=== PATIENT | male | born 1990 | race African-American/Black ===

== ENCOUNTER 2016-05-22 18:37 | Emergency (ER) | payer OTHER ==
[~2016-05-22] VITALS: Ht 172.7 cm; Wt 108.0 kg
[2016-05-22 18:48] VITALS: TEMP 37.4; Ht 172.7 cm; Wt 108.0 kg
[2016-05-22] MEDS ORDERED: ACETAMINOPHEN 500 MG TAB PO STA (19:26)
--- NOTE | 2016-05-22 20:03 | DIAGNOSTIC IMAGING REPORT ---
HEAD CT NONCONTRAST CT DOSE: 601.98 mGy.cm HISTORY: Closed head injury. TECHNIQUE: Multiaxial CT images of the head were performed without the use of intravenous contrast. Automated exposure control was utilized for this study. Comparison: None. Findings: The paranasal sinuses and mastoid air cells are clear. The calvarium and skull base are intact. The ventricles and sulci are within normal limits. There is no mass, hematoma, midline shift, or acute infarct. Impression: No acute intracranial abnormality. Electronically signed by: Norberto Gaona M.D. 05/22/2016 8:01 PM Dictated Date/Time: 05/22/2016 7:56 PM
[2016-05-22 20:50] VITALS: BP 150/92; PULSE 94; O2SAT 98
--- NOTE | 2016-05-22 22:45 | EMERGENCY ROOM VISIT NOTE ---
History Report prepared by Juanito: Jerrod Ching Under the Supervision of: Dr. Jeyson Cordero M.D. First contact with patient: 19:18 Chief Complaint: HEAD INJURY (MINOR) Stated Complaint: HEAD INJURY, SENT BY [facility] History of Present Illness The patient is a 26 year old male who presents to the Emergency Room with complaints of a sudden head injury to the back of the head occurring yesterday. The patient currently rates his discomfort as a 5/10 in severity. The patient states that yesterday he was walking out of work and he slipped on the ice. He states that he fell and hit the back of his head with a hat on and his back. He denies losing consciousness. The patient states that he had a headache yesterday , and he woke up very dizzy today. The patient additionally states that he feels very sleepy recently. The patient additionally complains of neck pain on both sides of his neck, some back pain, and some right knee aches. He states that he went to the urgent care center, and they told him to come for further evaluation. The patient denies any history of concussions or other head injuries. He states that he has not taken any medications for his symptoms thus far. The patient states that he has a history of asthma. Pt denies fevers, chills, diaphoresis, visual changes, chest pain, breathing difficulties, nausea , vomiting, abdominal pain, melena, hematochezia, urinary symptoms, numbness, weakness, lymphadenopathy, rash, or other complaints. Source of History: patient Onset: yesterday Position: head (back) Symptom Intensity: 5/10 Timing: other (sudden) Associated Symptoms: + back pain, + headache Note: Associated symptoms: dizziness and right knee pain Review of Systems See HPI for pertinent positives and negatives. A total of ten systems were reviewed and were otherwise negative. Past Medical & Surgical Medical Problems: (1) Asthma Social History Smoking Status: Never Smoker Marital Status: single Occupation Status: unemployed Current/Historical Medications No Active Prescriptions or Reported Meds Physical Exam Vital Signs Date Time Temp Pulse Resp B/P Pulse Ox O2 Delivery O2 Flow Rate FiO2 05/22/16 20:50 94 20 150/92 98 05/22/16 18:48 37.4 84 18 144/85 100 Room Air Physical Exam GENERAL: Awake, alert, uncomfortable appearing, no distress HENT: Normocephalic, atraumatic. TM's normal. Oropharynx unremarkable. EYES: PERRL. EOMI. Normal conjunctiva. Sclera non-icteric. NECK: Supple. No nuchal rigidity. FROM. No JVD or bruit. RESPIRATORY: CTA CARDIAC: RRR. No murmur. ABDOMEN: Soft, non distended. No tenderness to palpation. No rebound or guarding. No masses. RECTAL: Deferred. MUSCULOSKELETAL: Unremarkable. No edema. No discoloration. Gross motor strength symmetric. NEURO: Cranial nerves 2-12 grossly intact. Normal sensorium. No sensory or motor deficits noted. Speech normal. No pronator drift. SKIN: No rash or jaundice noted. LYMPH: No adenopathy. Medical Decision & Procedures ER Provider Diagnostic Interpretation: Radiology results as stated below per my review and radiologist interpretation HEAD CT NONCONTRAST CT DOSE: 601.98 mGy.cm HISTORY: Closed head injury. TECHNIQUE: Multiaxial CT images of the head were performed without the use of intravenous contrast. Automated exposure control was utilized for this study. Comparison: None. Findings: The paranasal sinuses and mastoid air cells are clear. The calvarium and skull base are intact. The ventricles and sulci are within normal limits. There is no mass, hematoma, midline shift, or acute infarct. Impression: No acute intracranial abnormality. Electronically signed by: Norberto Gaona M.D. 05/22/2016 8:01 PM Dictated Date/Time: 05/22/2016 7:56 PM Medications Administered Medications (Trade) Dose Ordered Sig/Melissa Route Start Time Stop Time Status Last Admin Dose Admin Acetaminophen (Tylenol Tab) 1,000 mg NOW STAT PO 05/22/16 19:26 05/22/16 19:35 DC 05/22/16 19:41 1,000 MG ED Course 1917: The patient was evaluated in room B7. A complete history and physical exam was performed. 1925: Tylenol Tab 1000mg PO 2031: I reevaluated the patient. Discussed results and discharge instructions: He verbalized understanding and agreement. The patient is ready for discharge. Medical Decision Triage Nursing notes reviewed and agree them. Additional history obtained from family. The patient's history was concerning for traumatic head injury Differential diagnosis: Etiologies such as contusion, fracture, subdural hematoma, concussion, epidural hematoma, intraparenchymal hemorrhage, as well as other traumatic pathologies were entertained. Physical examination findings: As above. ER treatment provided: P.o. Tylenol On reassessment the patient felt better. Diagnostics interpreted by me: Imaging studies: CT as above. It appears the patient has a concussion. The patient and family felt felt comfortable with conservative management. By the evaluation outlined above emergent etiologies such as fracture, subdural hematoma, epidural hematoma, intraparenchymal hemorrhage, as well as others were deemed relatively unlikely. The patient was informed about the findings as listed above. All questions were answered and he was pleased with the treatment. Return instructions were outlined and the patient was discharged in stable condition. Referral: The patient was referred back to his primary care physician for follow-up for a recheck of the current condition. The chart was completed utilizing GVISP 1 Speech voice recognition software. Grammatical errors, random word insertions, pronoun errors, and incomplete sentences are an occasional consequence of this system due to software limitations, ambient noise, and hardware issues. Any formal questions or concerns about the content, text, or information contained within the body of this dictation should be directly addressed to the physician for clarification. Impression Primary Impression: Concussion Scribe Attestation The scribe's documentation has been prepared under my direction and personally reviewed by me in its entirety. I confirm that the note above accurately reflects all work, treatment, procedures, and medical decision making performed by me. Departure Information Dispostion Home / Self-Care Prescriptions No Active Prescriptions or Reported Meds Referrals No Doctor, Assigned (PCP) Forms HOME CARE DOCUMENTATION FORM, IMPORTANT VISIT INFORMATION, Work Instructions Patient Instructions A Signature Page, My [facility] Additional Instructions CONCUSSION DISCHARGE INSTRUCTIONS: What is a concussion? A concussion is a disturbance in the function of the brain caused by a direct or indirect force to the head. It results in a variety of symptoms like: headache, balance problems, nausea, vomiting, vision problems, hearing problems/ringing, drowsiness, irritability, and/or difficulty concentrating or remembering. A concussion may, or may not involve memory problems or loss of consciousness. Concussion instructions: Stop and stay away from ALL physical activity until you are symptom free from: Headaches Balance problems Feeling "dinged" Poor concentration Drowsy Fatigued Rest and avoid strenuous activities for the next few days. Get 8-10 hours of sleep per night. Limit activities that involve significant concentration and attention during this time to speed your recovery. This includes studying, attending school, playing video games, and heavy reading. Your brain needs to rest. Eat right and eat often. Now is the time to feed your brain. Well balanced diets that avoid high sugar foods, sodas, caffeine, etc. are better for your brain. NO ALCOHOL OR DRUGS! Avoid stimulants like caffeine, red bull, mountain dew, "energy" drinks, etc. Tylenol(acetaminophen) may be used for headaches. Use 1000mg every six hours as needed. Avoid using more than 4000mg in a 24 hour period. Avoid anti-inflammatories such as aspirin, ibuprofen, Alleve, naprosyn, Motrin, or Advil as these can interfere with blood clotting and lead to bleeding within the brain after a traumatic injury. Stepwise return to sports for athletes or working out: You may progress to the next step after 24 hours if you are symptom free. If you experience symptoms, you must return to the previous stage and try again after another 24 hours of rest and being symptom free. Best case scenario is full contact game play in 7 days from the time of injury. Remember repeat concussions are worse than the first. Time invested in recovery will allow for better performance and less downtime in the future. If you have any questions see your sports medicine trainer or make an appointment to see one of the team physicians. 1) No activity, complete rest for 3 days. Once all symptoms have resolved, report to the team physician or sports medicine trainer to be cleared to progress to step 2. 2) Start light aerobic exercise, such as walking or stationary cycling, no resistance training permitted.(Day 4) 3) Sport specific exercises. Add light resistance slowly. Go slow to allow your body to readapt. (Day 5) 4) Non-contact full speed practice. (Day 6) 5) Full contact practice and/or game play.(Day 7) FOLLOW UP INSTRUCTIONS: You should have a follow up with a family doctor or team physician in 3-5 days regarding your injury. POST CONCUSSIVE SYNDROME: Occasionally patients can experience a postconcussive syndrome which includes prolonged headaches and memory difficulties. This may occur over the next several days, weeks or rarely, even months. It is important to have a primary care physician follow-up in order to help if the situation develops. Problems could arise over the next 24 to 48 hours. You should not be left alone and MUST go to the hospital immediately if you: -Have a headache that suddenly gets worse. -Are very drowsy or cannot be woken up from sleep. -Can't recognize people or places. -Have repeated vomiting. -Behave unusually, seemed confused, or start acting irritable. -Have a seizure (arms and legs start jerking uncontrollably). -Have weak or numb arms or legs. -Are unsteady on your feet -Experience slurred speech or difficulty speaking.
== END 2016-05-22 20:51 | disposition home or self-care (01) ==
LOC: C.EDB 18:41
DX: S06.0X0A Concussion without loss of consciousness, initial encounter (principal); W00.9XXA Unspecified fall due to ice and snow, initial encounter; Y93.01 Activity, walking, marching and hiking